=== PATIENT | female | born 1975 | race Caucasian/White ===

== ENCOUNTER 2022-06-10 11:47 | Emergency (ER) | payer OTHER ==
--- NOTE | 2022-06-10 13:49 | ED Physician Documentation ---
History of Present Illness - Stated complaint Stated Complaint: LT FINGER CUT - Chief complaint Chief Complaint: Laceration - Additonal information Additional information: 47-year-old female who is right-hand dominant and reports up-to-date tetanus presents emergency department for evaluation of a 2 cm linear laceration to her left index finger sustained when using a box icer. Bleeding controlled with pressure. 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 - Present Medications Home Medications: Ambulatory Orders Medication Instructions Recorded Confirmed No Known Home Medications 06/10/22 06/10/22 - Allergies Allergies/Adverse Reactions: Allergies Allergy/AdvReac Type Severity Reaction Status Date / Time shellfish derived Allergy Edema Verified 06/10/22 12:15 - Social History Does the pt smoke?: Yes Smoking Status: Current every day smoker Does the pt drink ETOH?: No Does the pt have substance abuse?: No - Immunizations Immunizations are current?: Yes PD ED PE EXPANDED - Extremities Extremities: Left finger(s) (2 cm laceration radial side distal left ring finger abutting cuticle . Neurovascular intact) Results - Vitals Vitals: Vital Signs - 24 hr 06/10/22 12:13 Temperature 36.8 C Heart Rate 81 Respiratory 16 Rate Blood Pressure 134/77 H O2 Saturation 100 Oxygen O2 Source Room air Procedures - Laceration (location) left index finger Wound type: Linear, Superficial Neurovascular status: Sensory intact, Motor intact Tendon involvement: Tendon intact Wound preparation: Chlorhexadine, Irrigated copiously NS Skin layer closure: Dermabond Other: Patient tolerated well, Tetanus UTD PD Medical Decision Making - ED course Complexity details: reviewed results, considered differential, d/w patient ED course: Simple laceration distal radial side of the index finger after using a box icer. Tetanus is up-to-date. Wound easily closed with Dermabond. Routine care and emergent return precautions discussed Departure - Departure Disposition: 01 Home, Self Care Clinical Impression: Laceration of index finger Qualifiers: Encounter type: initial encounter Damage to nail status: without damage Foreign body presence: without foreign body Laterality: left Qualified Code(s): S61.211A - Laceration without foreign body of left index finger without damage to nail, initial encounter Instructions: ED Laceration Ext Skin Glue Comments: Criss we closed your laceration using glue. This will simply wear away over the next 5 to 7 days. Do not submerge your finger in dirty bath water or dishwater. Do not apply antibiotic ointment to the wound as it will cause the glue to Wear away quickly. Return to the ER if you have any concerns of infection
[2022-06-10 13:52] VITALS: BP 130/75
== END 2022-06-10 13:58 | disposition home or self-care (01) ==
LOC: ED 11:47
DX: S61.211A Laceration without foreign body of left index finger without damage to nail, initial encounter (principal); W27.8XXA Contact with other nonpowered hand tool, initial encounter
CPT/HCPCS: 12001; 99281